=== PATIENT | female | born 1965 ===

== ENCOUNTER 2018-09-19 18:05 | Inpatient (IN) ==
[2018-09-19] MEDS ORDERED: LORazepam 2 MG/1 ML VIAL ONE (18:12)
[2018-09-19] MEDS ORDERED: LORazepam 2 MG/1 ML VIAL IV STA (18:18)
[2018-09-19] MEDS ORDERED: DIPH/TET/ACEL PERT BOOSTER VACCINE 0.5 ML VIAL IM ONE (18:21)
[2018-09-19 18:30] LABS: Basophils # 0.1 10*3/uL (0.0-0.2); Basophils % 0.5 % (0.0-0.8); Eosinophils # 0.1 10*3/uL (0.0-0.87); Eosinophils % 0.7 % (0.00-10.9); Hematocrit 36.5 VOL% (35.7-47.0); Hemoglobin 11.4 GM/DL (12.0-16.0); Immature Granulocytes % 2.7 %; Immature Granulocytes Absolute 0.53 #; Lymphocytes # 10.8 10*3/uL (1.4-4.0); Lymphocytes % 54.2 % (21.3-54.2); Mean Corpuscular HGB Conc 31.2 GM/DL (32-36); Mean Corpuscular Hemoglobin 23 PG (27-34); Mean Corpuscular Volume 74.5 FL (87-102); Mean Platelet Volume 11.7 FL (9.6-12.0); Monocytes # 0.9 10*3/uL (0.11-0.8); Monocytes % 4.6 % (1.7-12.7); Neutrophils # 7.4 10*3/uL (1.4-7.4); Neutrophils % 37.3 % (38.7-73.9); Platelet Count 310 T/CUMM (130-400); Red Cell Distribution Width 14.6 % (9.3-17.3); White Blood Count 19.9 T/CUMM (4-12)
[2018-09-19 18:51] LABS: Alanine Aminotransferase 62 U/L (13-56); Albumin 3.4 G/DL (3.4-5.0); Alkaline Phosphatase 109 U/L (45-117); Aspartate Amino Transferase 80 U/L (0-37); Bilirubin,Total < 0.39 MG/DL (0.2-1.0); Blood Urea Nitrogen 12 MG/DL (7-18); Calcium 8.3 MG/DL (8.5-10.1); Glucose 262 MG/DL (74-106); Osmolality,Calculated 281.8 MOS/KG (273-304); Potassium 3.2 MMOL/L (3.5-5.1); Sodium 137 MMOL/L (136-145); Total Protein 7.8 G/DL (6.4-8.3)
[2018-09-19 19:18] LABS: Band Neutrophils 2 % (0-10); Lymphocytes 55 % (20-55); Segmented Neutrophils 37 % (50-85); Total Cells Counted 100
[2018-09-19 19:22] LABS: Giant Platelets Few; Hypochromasia 1+; Ovalocytes Few; Platelet Estimate Normal
[2018-09-19] MEDS ORDERED: MORPHINE 4 MG/1 ML VIAL IV STA (19:49)
[2018-09-19] MEDS ORDERED: ONDANSETRON 4 MG/2 ML VIAL IV STA (19:50)
[2018-09-19] MEDS: DEXTROSE 5% LACTATED RINGERS 1,000 ML IV SCH (21:30)
[2018-09-20] MEDS: HYDROmorphone 2 MG/1 ML VIAL IV PRN ×2 (00:19→05:48)
[2018-09-20] MEDS: ONDANSETRON 4 MG/2 ML VIAL IV PRN ×3 (03:30→17:02)
[2018-09-20] MEDS: DEXTROSE 5% LACTATED RINGERS 1,000 ML IV SCH ×2 (05:31→17:05)
[2018-09-20] MEDS ORDERED: PANTOPRAZOLE 40 MG VIAL IV SCH (09:00)
[2018-09-20] MEDS ORDERED: INFLUENZA VIRUS VACCINE 0.5 ML SYRINGE IM ONE (09:00)
[2018-09-21] MEDS: DEXTROSE 5% LACTATED RINGERS 1,000 ML IV SCH ×2 (00:45→10:17)
[2018-09-21 01:06] LABS: Bilirubin,Total 0.5 MG/DL (0.2-1.0); Calcium 8.2 MG/DL (8.5-10.1); Osmolality,Calculated 283.8 MOS/KG (273-304); Potassium 3.3 MMOL/L (3.5-5.1)
[2018-09-21 01:10] LABS: Basophils % 0.2 % (0.0-0.8); Hematocrit 30.9 VOL% (35.7-47.0); Hemoglobin 9.7 GM/DL (12.0-16.0); Immature Granulocytes % 0.8 %; Immature Granulocytes Absolute 0.11 #; Lymphocytes # 1.6 10*3/uL (1.4-4.0); Lymphocytes % 12.2 % (21.3-54.2); Mean Corpuscular HGB Conc 31.4 GM/DL (32-36); Mean Corpuscular Hemoglobin 23 PG (27-34); Mean Corpuscular Volume 74.5 FL (87-102); Monocytes # 0.8 10*3/uL (0.11-0.8); Monocytes % 6.1 % (1.7-12.7); Neutrophils # 10.7 10*3/uL (1.4-7.4); Neutrophils % 80.7 % (38.7-73.9); Platelet Count 192 T/CUMM (130-400); Red Blood Count 4.15 MC/CUMM (3.8-5.5); Red Cell Distribution Width 14.6 % (9.3-17.3); White Blood Count 13.2 T/CUMM (4-12)
[2018-09-21] MEDS: PANTOPRAZOLE 40 MG TABLET PO SCH (09:17)
[2018-09-21] MEDS: MORPHINE 4 MG/1 ML VIAL IM PRN ×2 (10:08→13:51)
[2018-09-21] MEDS: ONDANSETRON 4 MG/2 ML VIAL IV PRN ×2 (10:17→13:50)
[2018-09-21] MEDS: SODIUM CHLORIDE 0.9% 1,000 ML IV SCH (11:15)
[2018-09-21] MEDS ORDERED: DEXTROSE 50% 25 GM/50 ML VIAL IV PRN (15:40)
[2018-09-21] MEDS ORDERED: GLUCAGON 1 MG VIAL IM PRN (15:40)
[2018-09-21 16:19] LABS: Thyroid Stimulating Hormone 0.555 uIU/ml (0.358-3.74)
[2018-09-21 16:59] LABS: HIV Antigen/Antibody Result Nonreactive (Nonreactive)
[2018-09-21 17:01] LABS: Hepatitis A Ab IgM Quant 0.02 Index; Hepatitis A Ab IgM Result Negative (Negative); Hepatitis B Core IgM Quant 0.14 Index; Hepatitis B Core IgM Result Negative (Negative); Hepatitis B Surface Ag Quant < 0.10 Index; Hepatitis B Surface Ag Result Negative (Negative); Hepatitis C Virus Ab Result Negative (Negative)
[2018-09-21] MEDS: INSULIN LISPRO 100 UNIT/ML SUBCUT SCH ×2 (17:44→21:46)
[2018-09-22] MEDS: SODIUM CHLORIDE 0.9% 1,000 ML IV SCH ×2 (00:29→13:30)
[2018-09-22 01:21] LABS: Barbiturates Screen,Urine Negative (Negative); Benzodiazepines Screen,Urine Negative (Negative); Cannabinoid Screen,Urine Negative (Negative); Opiate Screen,Urine Positive (Negative); Phencyclidine Screen,Urine Negative (Negative)
[2018-09-22 05:14] LABS: Basophils % 0.3 % (0.0-0.8); Eosinophils % 0.3 % (0.00-10.9); Hematocrit 30.3 VOL% (35.7-47.0); Hemoglobin 9.4 GM/DL (12.0-16.0); Immature Granulocytes % 1.3 %; Immature Granulocytes Absolute 0.13 #; Lymphocytes # 2.8 10*3/uL (1.4-4.0); Mean Corpuscular Hemoglobin 23 PG (27-34); Mean Corpuscular Volume 74.8 FL (87-102); Mean Platelet Volume 11.4 FL (9.6-12.0); Monocytes # 0.6 10*3/uL (0.11-0.8); Neutrophils # 6.4 10*3/uL (1.4-7.4); Neutrophils % 64.1 % (38.7-73.9); Platelet Count 175 T/CUMM (130-400); Red Blood Count 4.05 MC/CUMM (3.8-5.5); Red Cell Distribution Width 14.6 % (9.3-17.3)
[2018-09-22] MEDS: INSULIN LISPRO 100 UNIT/ML SUBCUT SCH ×4 (07:28→20:27)
[2018-09-22] MEDS: metFORMIN 500 MG TABLET PO SCH (07:29)
[2018-09-22] MEDS: MORPHINE 4 MG/1 ML VIAL IM PRN (09:27)
[2018-09-22] MEDS: PANTOPRAZOLE 40 MG TABLET PO SCH (09:27)
[2018-09-22] MEDS: KETOROLAC 15 MG/1 ML VIAL IV PRN ×2 (10:48→16:33)
[2018-09-22] MEDS: glyBURIDE 5 MG TABLET PO SCH (16:34)
[2018-09-23] MEDS: SODIUM CHLORIDE 0.9% 1,000 ML IV SCH ×3 (02:36→16:15)
[2018-09-23] MEDS: KETOROLAC 15 MG/1 ML VIAL IV PRN (04:45)
[2018-09-23] MEDS: metFORMIN 500 MG TABLET PO SCH (09:45)
[2018-09-23] MEDS: PANTOPRAZOLE 40 MG TABLET PO SCH (09:46)
[2018-09-23] MEDS: glyBURIDE 5 MG TABLET PO SCH ×2 (09:46→17:15)
[2018-09-23] MEDS: INSULIN LISPRO 100 UNIT/ML SUBCUT SCH ×4 (09:47→20:25)
[2018-09-23] MEDS: ONDANSETRON 4 MG/2 ML VIAL IV PRN (09:48)
[2018-09-23] MEDS: ENOXAPARIN 40 MG/0.4 ML SYRINGE SUBCUT SCH (11:50)
[2018-09-23] MEDS: MORPHINE 4 MG/1 ML VIAL IM PRN (19:25)
[2018-09-23] MEDS: DOCUSATE SODIUM 100 MG CAPSULE PO SCH (20:26)
[2018-09-23] MEDS: POLYETHYLENE GLYCOL POWDER 17 GM PACK PO SCH (20:26)
[2018-09-24] MEDS: ONDANSETRON 4 MG/2 ML VIAL IV PRN ×2 (02:59→07:40)
[2018-09-24] MEDS: SODIUM CHLORIDE 0.9% 1,000 ML IV SCH ×2 (05:10→18:03)
[2018-09-24] MEDS: INSULIN LISPRO 100 UNIT/ML SUBCUT SCH ×4 (07:55→22:03)
[2018-09-24] MEDS: metFORMIN 500 MG TABLET PO SCH (07:56)
[2018-09-24] MEDS: glyBURIDE 5 MG TABLET PO SCH ×2 (07:56→16:13)
[2018-09-24] MEDS: ENOXAPARIN 40 MG/0.4 ML SYRINGE SUBCUT SCH (10:06)
[2018-09-24] MEDS: POLYETHYLENE GLYCOL POWDER 17 GM PACK PO SCH ×2 (10:38→22:04)
[2018-09-24] MEDS: PANTOPRAZOLE 40 MG TABLET PO SCH (10:38)
[2018-09-24] MEDS: DOCUSATE SODIUM 100 MG CAPSULE PO SCH ×2 (10:38→22:03)
[2018-09-24] MEDS: KETOROLAC 15 MG/1 ML VIAL IV PRN (12:37)
[2018-09-25] MEDS: HYDROmorphone 2 MG/1 ML VIAL IV PRN ×2 (01:24→04:21)
[2018-09-25] MEDS: ONDANSETRON 4 MG/2 ML VIAL IV PRN (01:25)
[2018-09-25 06:15] LABS: Basophils % 0.3 % (0.0-0.8); Eosinophils # 0.1 10*3/uL (0.0-0.87); Eosinophils % 1.4 % (0.00-10.9); Hematocrit 27.8 VOL% (35.7-47.0); Hemoglobin 8.8 GM/DL (12.0-16.0); Immature Granulocytes % 0.3 %; Immature Granulocytes Absolute 0.03 #; Lymphocytes # 3.2 10*3/uL (1.4-4.0); Lymphocytes % 33.1 % (21.3-54.2); Mean Corpuscular HGB Conc 31.7 GM/DL (32-36); Mean Corpuscular Hemoglobin 24 PG (27-34); Mean Corpuscular Volume 75.5 FL (87-102); Mean Platelet Volume 11.3 FL (9.6-12.0); Monocytes # 0.7 10*3/uL (0.11-0.8); Monocytes % 6.9 % (1.7-12.7); Neutrophils # 5.6 10*3/uL (1.4-7.4); Platelet Count 228 T/CUMM (130-400); Red Blood Count 3.68 MC/CUMM (3.8-5.5); Red Cell Distribution Width 14.9 % (9.3-17.3); White Blood Count 9.6 T/CUMM (4-12)
[2018-09-25 06:41] LABS: Calcium 7.1 MG/DL (8.5-10.1); Potassium 2.8 MMOL/L (3.5-5.1)
[2018-09-25] MEDS: SODIUM CHLORIDE 0.9% 1,000 ML IV SCH ×2 (07:10→20:55)
[2018-09-25] MEDS: INSULIN LISPRO 100 UNIT/ML SUBCUT SCH ×4 (07:26→20:54)
[2018-09-25] MEDS: glyBURIDE 5 MG TABLET PO SCH ×2 (07:52→16:55)
[2018-09-25] MEDS: metFORMIN 500 MG TABLET PO SCH (07:52)
[2018-09-25] MEDS: DOCUSATE SODIUM 100 MG CAPSULE PO SCH ×2 (08:58→20:54)
[2018-09-25] MEDS: PANTOPRAZOLE 40 MG TABLET PO SCH (08:59)
[2018-09-25] MEDS: POLYETHYLENE GLYCOL POWDER 17 GM PACK PO SCH ×2 (08:59→20:55)
[2018-09-25] MEDS: ENOXAPARIN 40 MG/0.4 ML SYRINGE SUBCUT SCH (09:06)
[2018-09-25] MEDS: POTASSIUM CHLORIDE 20 MEQ TABLET PO SCH (10:50)
[2018-09-25] MEDS: POTASSIUM CHLORIDE RIDER 10 MEQ in PREMIX 1 EACH IV PRN ×3 (16:56→23:46)
[2018-09-26] MEDS: POTASSIUM CHLORIDE RIDER 10 MEQ in PREMIX 1 EACH IV PRN ×2 (03:59→10:00)
[2018-09-26 04:38] LABS: Basophils % 0.4 % (0.0-0.8); Eosinophils # 0.1 10*3/uL (0.0-0.87); Eosinophils % 1.4 % (0.00-10.9); Hemoglobin 9.5 GM/DL (12.0-16.0); Immature Granulocytes % 0.4 %; Immature Granulocytes Absolute 0.04 #; Lymphocytes # 3.4 10*3/uL (1.4-4.0); Lymphocytes % 36.7 % (21.3-54.2); Mean Corpuscular HGB Conc 30.6 GM/DL (32-36); Mean Corpuscular Hemoglobin 23 PG (27-34); Mean Platelet Volume 10.5 FL (9.6-12.0); Monocytes # 0.6 10*3/uL (0.11-0.8); Monocytes % 6.5 % (1.7-12.7); Neutrophils # 5.1 10*3/uL (1.4-7.4); Neutrophils % 54.6 % (38.7-73.9); Platelet Count 257 T/CUMM (130-400); Red Blood Count 4.08 MC/CUMM (3.8-5.5); Red Cell Distribution Width 15.8 % (9.3-17.3); White Blood Count 9.3 T/CUMM (4-12)
[2018-09-26 05:35] LABS: Calcium 8.2 MG/DL (8.5-10.1); Calcium 8.3 MG/DL (8.5-10.1); Potassium 3.2 MMOL/L (3.5-5.1); Potassium 3.3 MMOL/L (3.5-5.1)
[2018-09-26] MEDS: INSULIN LISPRO 100 UNIT/ML SUBCUT SCH ×4 (08:15→21:00)
[2018-09-26] MEDS: POTASSIUM CHLORIDE 20 MEQ TABLET PO SCH (10:00)
[2018-09-26] MEDS: metFORMIN 500 MG TABLET PO SCH (10:01)
[2018-09-26] MEDS: POLYETHYLENE GLYCOL POWDER 17 GM PACK PO SCH ×2 (10:01→21:00)
[2018-09-26] MEDS: PANTOPRAZOLE 40 MG TABLET PO SCH (10:01)
[2018-09-26] MEDS: DOCUSATE SODIUM 100 MG CAPSULE PO SCH ×2 (10:01→20:59)
[2018-09-26] MEDS: glyBURIDE 5 MG TABLET PO SCH ×2 (10:01→17:04)
[2018-09-26] MEDS: ENOXAPARIN 40 MG/0.4 ML SYRINGE SUBCUT SCH (10:01)
[2018-09-26] MEDS: SODIUM CHLORIDE 0.9% 1,000 ML IV SCH ×2 (10:05→22:34)
[2018-09-27 05:22] LABS: Basophils % 0.3 % (0.0-0.8); Eosinophils # 0.1 10*3/uL (0.0-0.87); Eosinophils % 1.5 % (0.00-10.9); Hematocrit 31.4 VOL% (35.7-47.0); Hemoglobin 9.7 GM/DL (12.0-16.0); Immature Granulocytes % 0.6 %; Immature Granulocytes Absolute 0.05 #; Lymphocytes # 2.4 10*3/uL (1.4-4.0); Mean Corpuscular HGB Conc 30.9 GM/DL (32-36); Mean Corpuscular Hemoglobin 24 PG (27-34); Mean Corpuscular Volume 76.2 FL (87-102); Mean Platelet Volume 11.9 FL (9.6-12.0); Monocytes # 0.7 10*3/uL (0.11-0.8); Monocytes % 7.6 % (1.7-12.7); Neutrophils # 5.6 10*3/uL (1.4-7.4); Platelet Count 148 T/CUMM (130-400); Red Blood Count 4.12 MC/CUMM (3.8-5.5); Red Cell Distribution Width 16.3 % (9.3-17.3); White Blood Count 8.9 T/CUMM (4-12)
[2018-09-27 05:53] LABS: Calcium 8.5 MG/DL (8.5-10.1); Osmolality,Calculated 276.4 MOS/KG (273-304); Potassium 3.6 MMOL/L (3.5-5.1)
[2018-09-27 06:38] LABS: Band Neutrophils 1 % (0-10); Lymphocytes 27 % (20-55); Segmented Neutrophils 68 % (50-85); Total Cells Counted 100
[2018-09-27 06:39] LABS: Anisocytosis 1+; Hypochromasia 1+; Microcytosis 1+; Polychromasia Slight; Tear Drop Cells Slight
[2018-09-27] MEDS: ENOXAPARIN 40 MG/0.4 ML SYRINGE SUBCUT SCH (09:42)
[2018-09-27] MEDS: glyBURIDE 5 MG TABLET PO SCH (09:43)
[2018-09-27] MEDS: POTASSIUM CHLORIDE 20 MEQ TABLET PO SCH (09:43)
[2018-09-27] MEDS: DOCUSATE SODIUM 100 MG CAPSULE PO SCH (09:43)
[2018-09-27] MEDS: PANTOPRAZOLE 40 MG TABLET PO SCH (09:43)
[2018-09-27] MEDS: INSULIN LISPRO 100 UNIT/ML SUBCUT SCH ×2 (09:43→11:20)
[2018-09-27] MEDS: metFORMIN 500 MG TABLET PO SCH (09:43)
[2018-09-27] MEDS: POLYETHYLENE GLYCOL POWDER 17 GM PACK PO SCH (09:44)
[2018-09-27 10:54] VITALS: BP 127/80
== END 2018-09-27 14:53 | disposition home or self-care (01) | DRG 552 ==
LOC: EDBD → N.EDINP 18:05 → N.ED 18:05 → N.3E 20:29
PROVIDERS: ADMIT Surgery; ATTEND Surgery